=== PATIENT | female | born 1960 | race Caucasian/White ===

== ENCOUNTER 2020-09-02 08:39 | Day surgery (SDC) | payer OTHER ==
[2020-09-02] MEDS ORDERED: LIDOCAINE HCL 2% 100 MG/5 ML IJ ONE (08:40)
[2020-09-02] MEDS ORDERED: Decadron 4 MG INJ IV ONE (08:40)
[2020-09-02] MEDS ORDERED: DIPRIVAN 200 MG/20 ML IV ONE (10:02)
--- NOTE | 2020-09-02 10:38 | XRAY ---
Indication: Left C3-C6 MBB. Intraoperative fluoroscopy provided for 18 seconds. 2 digital spot images submitted for interpretation demonstrates posterior needle tips projecting over the expected left C3-C6 nerve roots. Correlate with intraoperative findings/report.
--- NOTE | 2020-09-02 11:55 | XRAY ---
18 seconds of fluoroscopy was used in surgery for a left C3-C4, C4-C5, C5-C6 MBB.
[2020-09-02] MEDS ORDERED: Lactated Ringers 1,000 ML IV ONE (16:00)
== END 2020-09-02 10:31 | disposition home or self-care (01) ==
LOC: SDC-PAIN 08:39
PROVIDERS: ATTEND Psychiatry & Neurology Pain Medicine
DX: M47.812 Spondylosis without myelopathy or radiculopathy, cervical region (principal); M19.90 Unspecified osteoarthritis, unspecified site; E78.5 Hyperlipidemia, unspecified; E03.9 Hypothyroidism, unspecified; K21.9 Gastro-esophageal reflux disease without esophagitis; Z79.899 Other long term (current) drug therapy
CPT/HCPCS: 64490; 64491; 64492; 72040; 77002; 82947; J1100; J2704

== ENCOUNTER 2021-06-30 14:49 | Day surgery (SDC) | payer OTHER ==
[2021-06-30] MEDS ORDERED: BUPIVACAINE 0.5% VIAL IJ ONE (14:50)
[2021-06-30] MEDS ORDERED: Decadron 4 MG INJ IV ONE (14:50)
[2021-06-30] MEDS ORDERED: Lactated Ringers 1,000 ML IV ONE (16:04)
[2021-06-30] MEDS ORDERED: DIPRIVAN 200 MG/20 ML IV ONE (17:15)
--- NOTE | 2021-06-30 18:48 | XRAY ---
Indication: Left C3-C6 MBB. Intraoperative fluoroscopy provided for 32 seconds. 2 digital spot image submitted for interpretation demonstrates posterior needle tips projecting over the expected left C3-C6 nerve roots. Correlate with intraoperative findings/report.
--- NOTE | 2021-06-30 18:53 | XRAY ---
32 seconds fluoroscopy time in surgery for left C3-C6 MBB.
== END 2021-06-30 17:50 | disposition home or self-care (01) ==
LOC: SDC-PAIN 14:49
PROVIDERS: ATTEND Psychiatry & Neurology Pain Medicine
DX: M47.812 Spondylosis without myelopathy or radiculopathy, cervical region (principal); Z79.899 Other long term (current) drug therapy
CPT/HCPCS: 64490; 64491; 72040; 77002; 82947; J1100; J2704

== ENCOUNTER 2021-08-18 14:10 | Day surgery (SDC) | payer OTHER ==
[2021-08-18] MEDS ORDERED: Marcaine Mpf 0.5% Vial 30 Ml IJ ONE (14:11)
[2021-08-18] MEDS ORDERED: Decadron 4 MG INJ IV ONE (14:11)
[2021-08-18] MEDS ORDERED: Xylocaine 1% Vial 30 ML PF IJ ONE (14:11)
[2021-08-18] MEDS ORDERED: DIPRIVAN 200 MG/20 ML IV ONE (15:33)
--- NOTE | 2021-08-18 16:31 | XRAY ---
Indication: Left C3-C6 RFA. Intraoperative fluoroscopy provided for 46 seconds. 4 digital spot images submitted for interpretation demonstrates posterior needle tips projecting over the expected left C3-C6 nerve roots. Correlate with intraoperative findings/report.
--- NOTE | 2021-08-18 16:44 | XRAY ---
44 seconds of fluoroscopy was used in surgery for a left C3-C6 RFA.
[2021-08-18] MEDS ORDERED: Lactated Ringers 1,000 ML IV ONE (16:54)
== END 2021-08-18 16:19 | disposition home or self-care (01) ==
LOC: SDC-PAIN 14:10
PROVIDERS: ATTEND Psychiatry & Neurology Pain Medicine
DX: M47.812 Spondylosis without myelopathy or radiculopathy, cervical region (principal); Z79.899 Other long term (current) drug therapy
CPT/HCPCS: 01939; 64633; 64634; 72040; 77002; J1100; J2001; J2704